=== PATIENT | male | born 1985 | race Two or more races ===

== ENCOUNTER 2021-11-03 19:40 | Emergency (ER) | payer SELFPAY ==
--- NOTE | 2021-11-03 22:01 | NUR ---
CALLED PT IN [id number] ROOM AND OUTSIDE, NO RESPONSE.
--- NOTE | 2021-11-03 22:30 | NUR ---
CALLED PT AGAIN IN WAITING ROOM ANDS OUTSIDE, PT LWBS BY ER PHYSICIAN.
== END 2021-11-03 22:31 | disposition left against medical advice (07) ==
LOC: ER 19:50
DX: Z53.21 Procedure and treatment not carried out due to patient leaving prior to being seen by health care provider (principal)